=== PATIENT | male | born 1965 ===

== ENCOUNTER 2019-03-17 05:54 | Day surgery (SDC) | payer BC ==
--- NOTE | 2019-03-16 22:41 | Pre-Procedure Note/Attestation ---
Pre-Procedure Note/Attestation Complete Prior to Procedure Planned Procedure: right - Removal of pterygium right eye with conjunctival autograft and possible use of mitomycin-c and possible use of amniotic membrane Procedure Narrative: Removal of pterygium and placement of conjunctival autograft with possible use of mitomycin-c and amniotic membrane, right eye Indications for Procedure Pre-Operative Diagnosis: Large pterygium, right eye Attestation I attest that I discussed the nature of the procedure; its benefits; risks and complications; and alternatives (and the risks and benefits of such alternatives ), prior to the procedure, with the patient (or the patient's legal underwriting sales representative). I attest that, if there was a reasonable possibility of needing a blood transfusion, the patient (or the patient's legal underwriting sales representative) was given the [place] [facility] [employer] [facility] standardized written summary, pursuant to the [place] Blood Safety Act ([place] Health and Safety Code # 1645, as amended). I attest that I re-evaluated the patient just prior to the surgery and that there has been no change in the patient's H&P, except as documented below: Kofi Bennett MD Mar 16, 2019 22:41
[2019-03-17] VITALS (10 sets, daily range): BP systolic 134–152; BP diastolic 81–93
[~2019-03-17] VITALS: Ht 182.9 cm; Wt 93.9 kg
[2019-03-17] MEDS ORDERED: MitoMYcin Opth 0.2 mg/ml Syringe RIGHT EYE ONE (06:00)
[2019-03-17] MEDS: Tobradex Opth Susp 2.5ml RIGHT EYE SCH ×3 (06:31→06:47)
[2019-03-17] MEDS: Akten 3.5% 1ml Btl RIGHT EYE SCH ×3 (06:32→06:47)
[2019-03-17] MEDS ORDERED: NKM (06:37)
[2019-03-17] MEDS ORDERED: Polysporin Opth Oint 3.5gm ONE (07:11)
[2019-03-17] MEDS ORDERED: Lidocaine 2% 20mg/ml/Epi 0.005mg/ml 20ml vial ONE (07:11)
[2019-03-17] MEDS ORDERED: Lidocaine 1% MPF 10mg/ml 5ml ONE ×2 (07:11→07:30)
[2019-03-17] MEDS ORDERED: Pred Forte 1% Opth Susp 1ml ONE (07:11)
[2019-03-17] MEDS ORDERED: Povidone-Iodine 5% opth solution ONE (07:12)
[2019-03-17] MEDS ORDERED: Tetracaine 0.5% Opth 4ml Soln ONE (07:12)
[2019-03-17] MEDS ORDERED: Bupivacaine 0.75% 30ml vial INJ ONE (07:12)
[2019-03-17] MEDS ORDERED: BSS 15ml BTL ONE (07:12)
[2019-03-17] MEDS ORDERED: Propofol 200mg/20ml IV ONE (07:21)
[2019-03-17] MEDS ORDERED: Midazolam 2mg/2ml Inj ONE (07:21)
[2019-03-17] MEDS ORDERED: NS Irrig 1000ml ONE (07:30)
[2019-03-17] MEDS ORDERED: LR 1000ml ONE (07:30)
[2019-03-17] MEDS ORDERED: Sterile Water Irrig 1000ml IRRIG ONE (07:30)
[2019-03-17] MEDS ORDERED: Dexamethasone 4mg/ml vial ONE (07:35)
[2019-03-17] MEDS ORDERED: LR 1000ml 1,000 ML IVLG SCH (07:37)
--- NOTE | 2019-03-17 07:37 | Anethesia Preoperative Eval ---
Anesthesia Pre-op PMH/ROS General Date of Evaluation: Mar 17, 2019 Time of Evaluation: 07:24 Anesthesiologist: Amber ASA Score: ASA 2 Mallampati Score Class I : Soft palate, uvula, fauces, pillars visible Class II: Soft palate, uvula, fauces visible Class III: Soft palate, base of uvula visible Class IV: Only hard plate visible Mallampati Classification: Class II Surgeon: Donald Diagnosis: Pterygium Problem OD Surgical Procedure: Pterygium Excision OD Anesthesia History: none Family History: no anesthesia problems Allergies: Coded Allergies: No Known Allergies (Unverified , 03/16/19) Medications: see eMAR Patient NPO?: Yes Past Medical History Cardiovascular: Reports: HTN HEENT: Reports: other - PterygiumIssue, Foreign Object OD, ' Musculoskeletal/Integumentary: Reports: other - Leg Fracture Anesthesia Pre-op Phys. Exam Physician Exam Last Vital Signs Date Time Temp Pulse Resp B/P (MAP) Pulse Ox O2 Delivery O2 Flow Rate FiO2 03/17/19 06:30 97.3 65 20 152/90 97 Room Air Constitutional: NAD Neurologic: CN 2-12 intact Cardiovascular: RRR Respiratory: CTA Gastrointestinal: S/NT/ND Airway Exam Mallampati Score: Class II MO: full ROM: full Teeth: intact Anesthesia Pre-op A/P Risk Assessment & Plan Assessment: ASA 2 Plan: GA Status Change Before Surgery: Smith Brunner MD Mar 17, 2019 07:37
[2019-03-17] MEDS ORDERED: Hydromorphone 0.5mg/0.5ml inj IVP PRN (07:45)
[2019-03-17] MEDS ORDERED: Metoclopramide 10mg/2ml Inj IVP PRN (07:45)
[2019-03-17] MEDS ORDERED: Ketorolac 30mg Inj IV PRN ×2 (07:45)
[2019-03-17] MEDS ORDERED: HYDROcodone/Acetamin 5/325 tab ORAL PRN (07:45)
[2019-03-17] MEDS ORDERED: Atropine Sulfate 0.4mg/ml inj IVP PRN (07:45)
[2019-03-17] MEDS ORDERED: Meperidine 50mg/ml Inj(FOR RIGORS ONLY) IVP PRN (07:45)
[2019-03-17] MEDS ORDERED: LORazepam Inj 2mg/ml 1ml IV PRN (07:45)
[2019-03-17] MEDS ORDERED: Midazolam 2mg/2ml Inj IVP PRN (07:45)
[2019-03-17] MEDS ORDERED: HYDROcodone/Acetamin 7.5/325 tab ORAL PRN (07:45)
[2019-03-17] MEDS ORDERED: oxyCODONE HCL/Acetaminophen 5/325mg ORAL PRN (07:45)
[2019-03-17] MEDS ORDERED: DiphenhydrAMINE 50mg/ml Inj IVP PRN (07:45)
[2019-03-17] MEDS ORDERED: Labetalol 5mg/ml 20ml vial IV PRN (07:45)
[2019-03-17] MEDS ORDERED: fentaNYL 100 mcg/2 mL IV PRN (07:45)
--- NOTE | 2019-03-17 07:59 | Immediate Post-Op Evaluation ---
Immediate Post-Op Evalulation Immediate Post-Op Evalulation Procedure: Pterygium Excision OD Date of Evaluation: Mar 17, 2019 Time of Evaluation: 09:44 IV Fluids: 600 LR Blood Products: 0 Estimated Blood Loss: 2 Urinary Output: 0 Blood Pressure Systolic: 135 Blood Pressure Diastolic: 86 Pulse Rate: 59 Respiratory Rate: 16 O2 Sat by Pulse Oximetry: 97 Temperature (Fahrenheit): 97.2 Pain Score (1-10): 2 Nausea: No Vomiting: No Complications 0 Patient Status: awake, reacts, patent, none Hydration Status: adequate Smith Clark MD Mar 17, 2019 07:59
--- NOTE | 2019-03-17 08:00 | 48 Hour Post Anesthesia Eval ---
Post Anesthesia Evaluation Procedure: Pterygium Excision OD Date of Evaluation: Mar 17, 2019 Time of Evaluation: 12:12 Blood Pressure Systolic: 132 0: 82 Pulse Rate: 61 Respiratory Rate: 18 Temperature (Fahrenheit): 98.2 O2 Sat by Pulse Oximetry: 97 Airway: patent Nausea: No Vomiting: No Pain Intensity: 2 Hydration Status: adequate Cardiopulmonary Status: Stable Mental Status/LOC: patient returned to baseline Follow-up Care/Observations: 0 Post-Anesthesia Complications: 0 Follow-up care needed: ready to discharge Smith Clark MD Mar 17, 2019 08:00
--- NOTE | 2019-03-17 09:36 | Discharge Instructions ---
Discharge Instructions Discharge Instructions Follow Up Orders Leave patch and shield in place Followup tomorrow For Congestive Heart Failure Reminder Report to your physician any weight gain of 5 pounds or more in one week. Kofi Bennett MD Mar 17, 2019 09:36
--- NOTE | 2019-03-18 07:18 | Brief Operative Note ---
Immediate Post Operative Note Operative Note Pre-op Diagnosis: Pterygium, right eye Cornea Opacity, right eye Procedure: Removal of Nasal Pterygium OD Removal of growth on temporal cornea, OD Placement of multilayered amniotic membrane, OD Use of Mitomycin-C OD Post-op Diagnosis: Nasal Pterygium, OD Large growth on temporal cornea, OD Post-op Diagnosis: same as pre-op plus Surgeon: Ariane Bennett MD [place] Crew: none Anesthesiologist: Smith Clark MD Anesthesia: local, MAC Specimen: yes - Growth on cornea OD Complications: none Fluids: see chart Estimated Blood Loss: minimal Implant(s) used?: No Kofi Bennett MD Mar 18, 2019 07:18
--- NOTE | 2019-03-27 20:30 | Operative Note - Dictated ---
DATE OF OPERATION: 03/17/2019 SURGEON: Kofi Bennett M.D. HUMAN RESOURCES PROFESSIONAL SURGEON: None. ANESTHESIOLOGIST: Smith Clark M.D. ANESTHESIA: Local/standby/monitored anesthesia care. PREOPERATIVE DIAGNOSES: 1. Growth on cornea, temporally OD. 2. Nasal pterygium, right eye. PROCEDURE: 1. Removal of growth on cornea, right eye. 2. Placement of multilayer amniotic membrane, right eye. 3. Conjunctival autograft, right eye. 4. Removal of nasal pterygium, right eye. 5. Use of mitomycin-C, right eye. SPECIMENS: Corneal growth sent to pathology. COMPLICATIONS: None. INDICATIONS FOR SURGERY: The patient had a very large growth on the temporal cornea extending at least 6 to 7 mm onto the cornea anteriorly. This was present from approximately 6 o' clock to 10 o' clock. In addition, he had a nasal pterygium measuring approximately 4 mm in height by 1.6 mm horizontally. The growth on the temporal side of the cornea has enlarged over the last several years and the patient had decided to currently have it removed. OPERATIVE NOTE: After informed consent was obtained, the patient was brought to the operating room, placed in supine position. Cardiac and respiratory monitors were attached. A time-out was performed and all criteria were met and everyone in the room agreed. After IV sedation, a retrobulbar block followed by modified [place] block were given using a 50:50 mixture of 0.75% Marcaine and 1% lidocaine. The right eye was then draped and prepped in a sterile manner for ocular surgery. A lid speculum was placed in the eye. A 7-0 silk suture was placed at approximately in the 12 o'clock limbus as well as the 3:30 limbus. A 1% lidocaine preservative-free was injected in the conjunctiva temporally. There were no adhesions found of any tissue to the sclera. Markings were made on the conjunctiva and this area was removed and dissected towards the limbus. Through the cornea, part of this lesion was then excised using a hockey-stick shaped [place] blade. This came off in one tissue specimen. The limbus of this area was and there were no other lesions found. Attention was paid to the nasal pterygium where 1% lidocaine preservative-free was injected at the conjunctival limbus area and again this elevated freely from the sclera and the tail of this pterygium was marked and excised towards the limbus. The head of the pterygium was removed using a hockey-stick shaped [place] blade. The limbus of this area was also to smooth the area. Mitomycin-C was placed in the scleral bed both temporally and nasally for 2 minutes using 0.02% mitomycin. A conjunctival autograft was then placed at the scleral bed temporally. In addition, multiple layers of amniotic membrane were placed temporally and inferiorly as well as nasally and these were also sewn into place using several 8-0 Vicryl interrupted sutures. Subtenon injections of dexamethasone and gentamicin were then given. Previously the mitomycin-C was irrigated copiously with two bottles of BSS. After the subtenon injections of gentamicin and dexamethasone were given and the lid speculum and drapes were removed from the eye and Maxitrol ointment or bacitracin ointment was applied to the eye followed by two patches and a shield. The patient tolerated the procedure well and left the operating room awake, alert, and in stable condition. Kofi Bennett M.D. DR: MEENA JOB#: [id number] CC:
== END 2019-03-17 10:45 | disposition home or self-care (01) ==
LOC: SUR 05:54
DX: H16.011 Central corneal ulcer, right eye (principal); H11.001 Unspecified pterygium of right eye; I10 Essential (primary) hypertension
CPT/HCPCS: 65400; 65426; J1100; J2250; J2704; J3490; J7315; 94003; 94150